=== PATIENT | female | born 1965 | race Caucasian/White ===

== ENCOUNTER 2017-03-11 19:21 | Emergency (ER) | payer MEDICARE ==
[~2017-03-11] VITALS: Ht 165.1 cm; Wt 70.3 kg
[2017-03-11 19:29] VITALS: BP 120/72
[2017-03-11] MEDS ORDERED: ZOLOFT100 MG PO (19:29)
[2017-03-11] MEDS ORDERED: LANTUS SOLOS100 U/M1 SC ×2 (19:29→19:38)
[2017-03-11] MEDS ORDERED: LIPITOR10 MG PO (19:30)
== END 2017-03-11 19:51 | disposition home or self-care (01) ==
LOC: ED 19:21
DX: Z76.0 Encounter for issue of repeat prescription (principal); E11.9 Type 2 diabetes mellitus without complications; J44.9 Chronic obstructive pulmonary disease, unspecified; Z98.51 Tubal ligation status; Z79.899 Other long term (current) drug therapy; Z88.0 Allergy status to penicillin; Z88.6 Allergy status to analgesic agent